=== PATIENT | female | born 1970 | race Caucasian/White ===

== ENCOUNTER 2018-03-21 13:13 | Emergency (ER) | payer BC ==
[~2018-03-21] VITALS: Ht 175.3 cm; Wt 104.5 kg
[2018-03-21 13:39] LABS: BASO # 0.1 (0.0-0.2); BASO % 0.8 % (0.0-2.0); EOS # 0.2 (0.0-0.7); EOS % 1.2 % (0-4.0); GRAN % 61.7 % (42.2-75.2); HEMOGLOBIN 11.5 g/dl (12.5-16.0); LYMPH # 4.4 (1.2-3.4); LYMPH % 30.4 % (20.0-51.0); MEAN CELL VOLUME 82 fl (80.0-100.0); MEAN CORPUSCULAR HEMOGLOBIN 26 pg (27.0-31.0); MEAN CORPUSCULAR HGB CONC 32 g/dl (33.0-37.0); MEAN PLATELET VOLUME 10.2 fl (7.4-10.4); MONO # 0.8 (0.1-0.6); MONO % 5.6 % (1.7-9.3); PLATELET COUNT 373 K/mm3 (130-400); RED BLOOD COUNT 4.35 M/mm3 (4.10-5.30); REDCELL DISTRIBUTION WIDTH-CV 15.6 % (11.5-14.5)
[2018-03-21] MEDS ORDERED: SYNTHROID0.175 MG PO (13:39)
[2018-03-21] MEDS ORDERED: PRINIVIL5 MG PO (13:39)
[2018-03-21 13:40] LABS: HEMATOCRIT 35.6 % (37.0-47.0)
[2018-03-21] MEDS ORDERED: KLONOPIN 1MG1 MG PO (13:40)
[2018-03-21] MEDS ORDERED: ZESTRIL 10MG10 MG PO (13:40)
[2018-03-21] MEDS ORDERED: AMITRIPTYLINE H25 M1 PO (13:40)
[2018-03-21] MEDS ORDERED: SYNTHROID0.112 MG/T PO (13:41)
[2018-03-21] MEDS ORDERED: ZOLOFT 100MG100 MG PO (13:41)
[2018-03-21 13:45] LABS: ALBUMIN 4.2 gm/dL (3.5-5.0); BILIRUBIN,TOTAL 0.3 mg/dL (0.0-1.0); CALCIUM 9.4 mg/dL (8.4-10.2); CREATININE, serum 0.69 mg/dL (0.52-1.25); POTASSIUM 4.4 mmol/L (3.4-5.0); TOTAL PROTEIN 7.7 gm/dL (6.4-8.2)
[2018-03-21 14:11] LABS: COLLECTION METHOD CLEAN CATCH
[2018-03-21 14:17] LABS: PH 6 (5-8); SQUAMOUS EPITHELIAL 0-2 /hpf; URINE APPEARANCE Clear; URINE BACTERIA Rare /hpf; URINE BILIRUBIN Negative (NEGATIVE); URINE BLOOD 2+ (NEGATIVE); URINE COLOR Amber; URINE GLUCOSE Negative (NEGATIVE); URINE KETONE Negative (NEGATIVE); URINE LEUKOCYTE ESTERASE Negative (NEGATIVE); URINE NITRATE Positive (NEGATIVE); URINE PROTEIN(semi-quant) Negative (NEGATIVE); URINE RBC 20-50 /hpf
[2018-03-21] MEDS ORDERED: AMOXICILLIN 8751 TAB PO (15:01)
[2018-03-21] MEDS ORDERED: EPIPEN 2-PAK1 MG/ML IM (15:08)
[2018-03-21 15:20] VITALS: BP 110/68; PULSE 95
== END 2018-03-21 15:20 | disposition home or self-care (01) ==
LOC: COL.ER 13:13
PROVIDERS: Family Medicine
DX: T63.461A Toxic effect of venom of wasps, accidental (unintentional), initial encounter (principal); N39.0 Urinary tract infection, site not specified; I10 Essential (primary) hypertension
CPT/HCPCS: J0171; J1200; J2060; J2405; J2930; J7030